=== PATIENT | male | born 1955 | race Caucasian/White ===

== ENCOUNTER → 2018-06-11 09:55 | Outpatient (CLI) | payer BC, SELFPAY ==
[2018-06-11 12:04] LABS: Cholesterol 213 mg/dL (50-200); HDL Cholesterol 48 mg/dL (40-60); LDL CHOLESTEROL 94 mg/dL (<100); Triglyceride 249 mg/dL (30-150)
== END ==
PROVIDERS: PCP Internal Medicine; Visit Provider Internal Medicine
DX: E78.5 Hyperlipidemia, unspecified (principal)
CPT/HCPCS: 36415; 80061; 83721

== ENCOUNTER 2018-10-04 08:46 | Emergency (ER) | payer BC, SELFPAY ==
--- NOTE | 2018-10-04 08:48 | W.ED.GENAD ---
Discharge Plan Disposition Patient Disposition: HOME Condition: Stable Discharge Details Chief Complaint: Laceration Clinical Impression: Laceration, Open fracture of tuft of distal phalanx of finger Primary Care Provider: Pepper Jalloh ED Provider: Khadra Juarez Home Meds and New Rx's Prescriptions: No Action omega-3 fatty acids-fish oil [Fish Oil] 1 EACH capsule 1 ea PO BID RF: 0 glucosamine sulfate 2KCl 1,000 MG capsule 1,000 mg PO BID RF: 0 gemfibrozil [Lopid] 600 MG tablet 600 mg PO BID Qty: 180 RF: 4 albuterol sulfate [ProAir HFA] 8.5 GM HFA aerosol inhaler 2 puff Inhalation QID Qty: 1 RF: 1 fluticasone [Flovent HFA] 12 GM HFA aerosol inhaler 220 mcg Inhalation DAILY Qty: 3 RF: 2 cholecalciferol (vitamin D3) [Vitamin D3] 2,000 UNIT capsule 2,000 unit PO DAILY RF: 0 ibuprofen 600 MG tablet 600 mg PO Q6H Qty: 40 RF: 0 Discharge Instructions Instructions: Laceration (ED), Finger Fracture (ED) Additional Instructions: Please return immediately to the emergency department if you develop any new or worsening symptoms or if you become otherwise concerned. It is extremely important that you make an appointment to be seen by an orthopedic surgeon next week as we discussed for follow-up. Referrals: Gilberto Lay MD [ [facility] STAFF PHYSICIAN] - Pepper Jalloh MD [Primary Care Provider] - Discharge Data Discharge Date/Time-TO BE ENTERED AT DEPARTURE: 10/04/18 10:37 Medical Decision Making Tarun Amado is a 64-year-old man with history of hypercholesterolemia presenting to the emergency department with laceration to the distal tip of right index finger from table saw accident 4 days ago. On exam patient is very well and nontoxic appearing. Laceration does involve the fingernail. No signs of infection, digit is neurovascular intact. There are no other apparent injuries. Exam/history is not consistent with flexor tenosynovitis, sepsis, tendon injury, significant nerve injury. Concern for possible fracture. Plan for x-rays, irrigation with digital block, update tetanus. Wound irrigated copiously under pressure. Small amount of devascularized tissue debrided. Nails intact to cuticle, will leave in place at this time. Wound is not amenable to repair at this point. X-rays show tuft fracture. I discussed the patient with Dr. Leach orthopedic surgery, who recommended no antibiotics at this time given time elapsed from injury, Xeroform gauze dressing, orthopedics will see patient next week in follow-up. Lengthy discussion with patient regarding return to emergency department precautions and importance of outpatient follow-up with orthopedics next week and also with PCP. Patient is amenable to the plan. Medical Records Medical records reviewed: Yes I reviewed the patient's medical records. Imaging Data Radiologic Study: Attestation: I personally reviewed and interpreted this imaging study as follows: Radiologist's impression: Right index finger x-ray: Comminuted distal phalanx fracture of the right index finger HPI General Mode of arrival: ambulatory. Date/Time Provider Initiated Documentation: 10/04/18 08:48. Limitations to Documentation: no limitations. Information obtained by: patient, RN notes reviewed and old records reviewed. HPI Narrative: Tarun Amado is a 63 y/o man with history of hypercholesterolemia presenting to the emergency department laceration. Patient reports that 4 days ago he was using a table saw when he cut the distal end of his right index finger. Patient reports that his 's mother 5 days ago, and he did not want to cause her stress with his injury and so did not present to the emergency department. Patient reports that he came to the emergency department today because his family urged him to do so. He reports that he has been having continued unchanged pain since the incident to the tip of his right index finger the area of the injury. He has no other pain. There was no other injury. He has full range of motion of the finger. He reports sensation is normal other than pain. No recent illnesses. Has been eating and drinking normally. No skin rash. Related Data Home Medications Medication Instructions Recorded Confirmed omega-3 fatty acids-fish oil [Fish 1 ea PO BID cap 04/17/13 10/04/18 Oil 1,000 Mg Softgel] glucosamine sulfate 2KCl 1,000 mg PO BID 07/03/14 10/04/18 gemfibrozil [Lopid] 600 mg PO BID #180 tab-cap 08/23/17 10/04/18 albuterol sulfate [Proair Hfa] 2 puff INHALATION QID #1 inhaler 01/24/18 10/04/18 fluticasone [Flovent 220mcg] 220 mcg INHALATION DAILY #3 inhaler 01/24/18 10/04/18 cholecalciferol (vitamin D3) 2,000 unit PO DAILY 01/29/18 10/04/18 [Vitamin D3] ibuprofen 600 mg PO Q6H #40 tab 06/22/18 10/04/18 Previous Rx's Medication Instructions Recorded gemfibrozil [Lopid] 600 mg PO BID #180 tab-cap 08/23/17 albuterol sulfate [Proair Hfa] 2 puff INHALATION QID #1 inhaler 01/24/18 fluticasone [Flovent 220mcg] 220 mcg INHALATION DAILY #3 inhaler 01/24/18 ibuprofen 600 mg PO Q6H #40 tab 06/22/18 Allergies Allergy/AdvReac Type Severity Reaction Status Date / Time ether Allergy Mild Unverified 10/04/18 08:53 Review of Systems Review of Systems Constitutional: denies fevers Eyes: denies eye pain ENT: denies facial pain, dental pain, sore throat Cardiovascular: denies chest pain Respiratory: denies SOB, cough GI: denies abdominal pain, vomiting : denies flank pain MSK: denies back pain, neck pain, arthralgias Skin: denies rash, reports wound Neuro: denies headaches, n/t, weakness PFSH Hyperlipidemia Family History Mother Diabetes Father Heart disease Sister No problems noted. Brother Heart disease Grandfather No problems noted. Grandfather Heart disease Grandmother No problems noted. Grandmother No problems noted. Brother Diabetes Heart disease Stroke Son No problems noted. Daughter No problems noted. Appendectomy Fracture, Open Treatment Family History Mother Diabetes Father Heart disease Sister No problems noted. Brother Heart disease Grandfather No problems noted. Grandfather Heart disease Grandmother No problems noted. Grandmother No problems noted. Brother Diabetes Heart disease Stroke Son No problems noted. Daughter No problems noted. Medical History Hyperlipidemia Social History Smoking/Tobacco Use Status: Never substance use type: does not use Surgical History Appendectomy Fracture, Open Treatment Social History Smoking/Tobacco Use Status: Never substance use type: does not use Exam Narrative Exam Narrative: Constitutional: well and [id number], pleasant, conversing normally HENT: head atraumatic, normocephalic normal inspection, mucous membranes moist Eyes: conjunctiva normal, sclera normal, pupils 3mm b/l Neck: no stridor, normal ROM, trachea midline Resp: normal work of breathing Cardio: normal rate, normal rhythm Skin: warm, dry, normal color, no rash Neuro: alert, not altered, grossly non-focal, normal tone Ext: no edema. Right index finger with laceration to distal medial aspect involving fingernail, no edema of the finger, no skin erythema, full range of motion of the digit, sensation intact. Right hand otherwise atraumatic with normal exam. Radial pulses intact and symmetric. Psych: normal mood, normal affect, normal behavior Procedures Nerve Block Nerve Block 1: Local Anesthetic: Lidocaine 1% Amount of anesthesia used (mL): 4 Side: right Nerve Blocks: digital Procedure Successful: Yes Patient Tolerated Procedure: well and no complications Complications: none
[2018-10-04 08:49] VITALS: BP 170/107; PULSE 100; RESP 16; TEMP 36.6; O2SAT 98
--- NOTE | 2018-10-04 08:56 | DI.RAD_ITS ---
SYMPTOM/DIAGNOSIS: DISTAL LACERATION RIGHT INDEX FINGER: There is soft tissue irregularity at the distal aspect of the finger. There is a comminuted tuft fracture with multiple small fragments. Underlying moderate degenerative changes are seen of the interphalangeal joints. IMPRESSION: Comminuted tuft fracture.
[2018-10-04] MEDS: Cephalexin 500 MG CAP PO (09:50)
[2018-10-04] MEDS: Lidocaine 1% Multi-Dose 50 ML VIAL (09:52)
[2018-10-04 10:34] VITALS: PULSE 72; RESP 16; TEMP 37
== END 2018-10-04 10:37 | disposition home or self-care (01) ==
PROVIDERS: Emergency Provider Student in an Organized Health Care Education/Training Program; PCP Internal Medicine
DX: S62.660B Nondisplaced fracture of distal phalanx of right index finger, initial encounter for open fracture (principal); W31.2XXA Contact with powered woodworking and forming machines, initial encounter
CPT/HCPCS: 90471; 99284; 73140

== ENCOUNTER 2019-06-17 07:18 | Outpatient (CLI) | payer BC, SELFPAY ==
[2019-06-17 12:15] LABS: Calculated LDL 99 mg/dL; Cholesterol 172 mg/dL (50-200); HDL Cholesterol 48 mg/dL (40-60); Triglyceride 128 mg/dL (30-150)
[2019-06-18 09:45] LABS: PSA, Screening 1.3 ng/ml (0-4.5)
== END 2019-06-17 07:38 ==
PROVIDERS: PCP Internal Medicine; Visit Provider Internal Medicine
DX: E78.5 Hyperlipidemia, unspecified (principal); R35.1 Nocturia; Z12.5 Encounter for screening for malignant neoplasm of prostate
CPT/HCPCS: 36415; 80061; 83721; 84153

== ENCOUNTER 2020-05-27 13:17 | Outpatient (REF) | payer BC, SELFPAY ==
[2020-05-27 14:02] LABS: Abs Immature Grans 0.04 10^3/uL (0.0-0.06); Absolute Basophil Count 0.06 10^3/uL (0.0-0.2); Absolute Eosinophil Count 0.17 10^3/uL (0.0-0.7); Absolute Lymphocyte Count 1.97 10^3/uL (1.2-3.4); Absolute Monocyte Count 0.33 10^3/uL (0.1-0.8); Absolute Neutrophil Count 4.14 10^3/uL (1.2-6.7); Basophils % 0.9; Eosinophils % 2.5; HCT 45.4 % (40.0-50.0); HGB 15.3 g/dL (13.5-17.5); Immature Grans % 0.6; Lymphocytes % 29.4; MCH 30.2 pg (27.0-33.0); MCHC 33.7 % (32.0-36.0); MCV 89.5 fL (80-95); MPV 11.1 fL (8.0-11.0); Monocytes % 4.9; Neutrophils % 61.7; Platelet Count 237 10^3/uL (130-400); RBC 5.07 10^6/uL (4.36-5.78); RDW-SD 42.5 fL; WBC 6.71 10^3/uL (4.4-10.8)
[2020-05-27 14:04] LABS: ALT 33 U/L (16-63); AST 19 U/L (15-37); Albumin 4.3 g/dL (3.4-5.0); Alkaline Phosphatase 75 U/L (46-116); Anion Gap 10.8 mmol/L (3-11); BUN 13 mg/dL (7-18); Bilirubin, Total 0.9 mg/dL (0.2-1.0); CO2 24.2 mmol/L (21.0-32.0); CREATININE 0.94 mg/dL (0.70-1.30); Calcium 9.1 mg/dL (8.5-10.1); Calculated LDL 126 mg/dL (<100); Chloride 105 mmol/L (98-107); Cholesterol 216 mg/dL (<200); Glucose 121 mg/dL (74-106); HDL Cholesterol 50 mg/dL (40-60); Potassium 4.2 mmol/L (3.5-5.1); Sodium 140 mmol/L (136-145); Total Protein 7.7 g/dL (6.4-8.2); Triglyceride 201 mg/dL (<150)
[2020-05-27 14:12] LABS: Uric Acid 2.8 mg/dL (3.5-7.2)
[2020-05-27 14:31] LABS: Bilirubin Negative (Negative); Blood Negative (Negative); Clarity Clear (Clear); Glucose Negative (Negative); Ketones Negative (Negative); Leukocyte Esterase Negative (Negative); Nitrite Negative (Negative); Specific Gravity >= 1.030 (1.005-1.025); Urobilinogen 0.2 EU/dL (Up TO 0.2); pH 6.5 (5-8)
== END 2020-05-27 13:37 ==
LOC: LBN 13:17
PROVIDERS: PCP Nurse Practitioner; Visit Provider Family Medicine
DX: E78.5 Hyperlipidemia, unspecified (principal); R10.30 Lower abdominal pain, unspecified; N20.0 Calculus of kidney
CPT/HCPCS: 80053; 80061; 81003; 84550; 85025

== ENCOUNTER 2020-09-07 09:23 | Outpatient (CLI) | payer BC, SELFPAY ==
--- NOTE | 2020-09-07 09:15 | DI.RAD_ITS ---
EXAM: XR FOOT RT COMPLETE CLINICAL HISTORY: R foot pain TECHNIQUE: COMPARISON: CR RIGHT FOOT LIMITED from 06/22/2018 FINDINGS: Three views were obtained. There is a fixation screw in the 5th metatarsal. Fixation distal tibia a nd distal fibula is also noted. There is question of mild loosening of the 5th metatarsal fixation s crew with lucent halo around its tip. There are mild degenerative changes of the joints of foot. IMPRESSION: Question loosening of 5th metatarsal fixation screw please correlate site of the patient's symptomato logy. RADIATION DOSE DELIVERED: Total DLP
== END 2020-09-07 09:43 ==
PROVIDERS: PCP Nurse Practitioner; Referring Provider Nurse Practitioner; Visit Provider Physician Assistant
DX: M79.671 Pain in right foot (principal)
CPT/HCPCS: 73630

== ENCOUNTER 2021-06-10 10:23 | Outpatient (CLI) | payer BC, SELFPAY ==
[2021-06-10 12:34] LABS: Calculated LDL 131 mg/dL (<100); Cholesterol 214 mg/dL (<200); HDL Cholesterol 53 mg/dL (40-60); Triglyceride 153 mg/dL (<150)
[2021-06-10 12:38] LABS: Hemoglobin A1C 6.1 % (<5.7)
== END 2021-06-10 10:24 | disposition home or self-care (01) ==
LOC: LOS 10:25
PROVIDERS: PCP Nurse Practitioner Family; Visit Provider Nurse Practitioner Family
DX: E78.5 Hyperlipidemia, unspecified (principal); Z13.1 Encounter for screening for diabetes mellitus
CPT/HCPCS: 36415; 80061; 83036

== ENCOUNTER 2021-09-24 00:36 | Outpatient (CLI) | payer MEDICARE, BC, SELFPAY ==
--- NOTE | 2021-09-24 07:00 | DI.CT_ITS ---
Exam(s) CT RENAL COLIC WO EXAM: CT RENAL COLIC WO CLINICAL HISTORY: Kidney stone on rt, n20.0. TECHNIQUE: Imaging Protocol: Axial computed tomography images with coronal and sagittal reformatted images were created and reviewed. CONTRAST MATERIAL: Noncontrast COMPARISON: CT RENAL COLIC WO CONTRAST from 05/08/2012 CT RENAL COLIC WO CONTRAST from 05/08/2012 FINDINGS: ABDOMEN: Lung Bases: Pleural plaques. Few calcifications. Liver: Normal attenuation. No measurable mass. Gallbladder and biliary tract: No radiodense calculus or dilation. Pancreas: Normal density, no calcifications or inflammatory process. Spleen: Normal. Kidneys: Normal size, contour and axis. Duplex collecting system right kidney. No radiodense stones or obstructive uropathy. No masses seen. Adrenal glands: No masses seen. Abdominal Aorta: Abdominal portion non-dilated. Mild atherosclerotic changes. PELVIS: Bladder: Symmetric distention, no gross wall thickening. Bowel: Sigmoid diverticulosis. No evidence of diverticulitis. No obstruction or bowel wall thickeni ng. Peritoneal cavity: No ascites, collection or mesenteric inflammatory response. Mildly enlarged prostate impressing on base of bladder. Bones: Stable mild L1 compression fracture. Degenerative disc changes at L5-S1. Soft tissues: Fatty containing left inguinal hernia. IMPRESSION: No evidence of urinary tract calculi or hydronephrosis. RADIATION DOSE DELIVERED: 789.55mGy.cm Total DLP DATA REPOSITORY: All CT scans at this facility are submitted to the National Radiology Data Registry (NRDR) Dose Index Registry (DIR) with the [employer] (A[employer]). RADIATION OPTIMIZATION: All CT scans at this facility use at least one of these dose optimization te chniques: automated exposure control; mA and/or kV adjustment per patient size (includes targeted exa ms where dose is matched to clinical indication); or iterative reconstruction.
== END 2021-09-24 00:56 ==
PROVIDERS: PCP Nurse Practitioner Family; Visit Provider Nurse Practitioner Family
DX: N20.0 Calculus of kidney (principal)
CPT/HCPCS: 74176

== ENCOUNTER 2021-09-27 13:00 | Outpatient (REF) | payer MEDICARE, BC, SELFPAY | END 2021-09-27 13:01 | disposition home or self-care (01) | LOC: LBN 13:00 | PROVIDERS: PCP Nurse Practitioner Family; Visit Provider Nurse Practitioner Family | DX: N20.0 Calculus of kidney (principal) | CPT/HCPCS: 87086 ==

== ENCOUNTER → 2021-09-30 09:48 | Outpatient (BNVA) | payer MEDICARE, BC, SELFPAY | PROVIDERS: PCP Nurse Practitioner Family; Referring Provider Nurse Practitioner Family; Visit Provider Urology | DX: N20.0 Calculus of kidney (principal); R31.29 Other microscopic hematuria | CPT/HCPCS: 81003; 99204; 99214 ==

== ENCOUNTER 2022-08-04 02:25 | Outpatient (CLI) | payer MEDICARE, BC, SELFPAY ==
[2022-08-04 13:32] LABS: Calculated LDL 136 mg/dL (<100); Cholesterol 208 mg/dL (<200); HDL Cholesterol 56 mg/dL (40-60); Triglyceride 82 mg/dL (<150)
[2022-08-04 13:35] LABS: Hemoglobin A1C 5.9 % (<5.7)
== END 2022-08-04 02:26 | disposition home or self-care (01) ==
LOC: LOS 02:26
PROVIDERS: PCP Nurse Practitioner Family; Visit Provider Nurse Practitioner Family
DX: E78.5 Hyperlipidemia, unspecified (principal); R73.03 Prediabetes
CPT/HCPCS: 36415; 80061; 83036

== ENCOUNTER 2023-06-05 13:03 | Outpatient (REF) | payer MEDICARE, BC, SELFPAY ==
--- NOTE | 2023-06-05 12:15 | SKI_PTH ---
PATIENT: Tarun Amado LOC: [facility] U#:[id number] AGE/SX: 67/M ROOM: RE06/05/[address]: Talib Hameed MD : 1955 BED: DIS: 06/05/2023 SPEC #: [id number] RECD: 06/05/23 18:12 STATUS: RACHID REQ #: [id number] RUSLAN: 06/05/23 12:[address]: Talib Hameed DEPT: Surgical Specimen RECD BY: Grecia Otero ENTERED: 06/05/23 18:13 SP TYPE: HIEN NUÑEZ DR: Jerod Cagle, DARRYL Tissues: 1 - SKIN BIOPSY(SHAVE/PUNCH) Procedures: SKIN LEVEL 4 Comments: [id number]
== END 2023-06-05 13:04 | disposition home or self-care (01) ==
LOC: LBN 13:03
PROVIDERS: PCP Nurse Practitioner Family; Visit Provider Otolaryngology
DX: C44.212 Basal cell carcinoma of skin of right ear and external auricular canal (principal)
CPT/HCPCS: 88305

== ENCOUNTER 2023-06-28 10:24 | Outpatient (CLI) | payer MEDICARE, BC, SELFPAY ==
[2023-06-28 08:19] LABS: CREATININE 0.9 mg/dL (0.70-1.30); Calculated LDL 95 mg/dL (<100); Cholesterol 167 mg/dL (<200); Estimated GFR 94.19 (mL/min/1.73m2); HDL Cholesterol 55 mg/dL (40-60); Potassium 3.5 mmol/L (3.5-5.1); Triglyceride 85 mg/dL (<150)
== END 2023-06-28 10:25 | disposition home or self-care (01) ==
LOC: LBO 10:24
PROVIDERS: PCP Nurse Practitioner Family; Visit Provider Nurse Practitioner Family
DX: I10 Essential (primary) hypertension (principal); E78.5 Hyperlipidemia, unspecified
CPT/HCPCS: 36415; 80061; 82565; 84132

== ENCOUNTER 2024-07-29 13:00 | Outpatient (CLI) | payer MEDICARE, BC, SELFPAY ==
[2024-07-29 08:52] LABS: Calculated LDL 93 mg/dL (<100); Cholesterol 184 mg/dL (<200); Estimated GFR 82.49 (mL/min/1.73m2); HDL Cholesterol 60 mg/dL (40-60); Potassium 4.3 mmol/L (3.5-5.1); Triglyceride 155 mg/dL (<150)
[2024-07-29 18:28] LABS: PSA, Screening 1.6 ng/mL (<=4.5)
== END 2024-07-29 13:01 | disposition home or self-care (01) ==
LOC: LBO 13:01
PROVIDERS: PCP Nurse Practitioner Family; Visit Provider Nurse Practitioner Family
DX: I10 Essential (primary) hypertension (principal); E78.2 Mixed hyperlipidemia; Z13.220 Encounter for screening for lipoid disorders; Z12.5 Encounter for screening for malignant neoplasm of prostate
CPT/HCPCS: 36415; 80061; 84153; 82565; 84132

== ENCOUNTER 2025-08-05 08:06 | Outpatient (CLI) | payer MEDICARE, BC, SELFPAY ==
[2025-08-05 08:14] LABS: Anion Gap 10.6 mmol/L (3-11); BUN 16 mg/dL (7-18); CO2 27.4 mmol/L (21.0-32.0); Calcium 8.9 mg/dL (8.5-10.1); Calculated LDL 112 mg/dL (<100); Chloride 102 mmol/L (98-107); Cholesterol 188 mg/dL (<200); Estimated GFR 81.98 (mL/min/1.73m2); Glucose 139 mg/dL (74-106); HDL Cholesterol 55 mg/dL (>or=40); Potassium 4.3 mmol/L (3.5-5.1); Sodium 140 mmol/L (136-145); Triglyceride 108 mg/dL (<150)
== END 2025-08-05 08:07 | disposition home or self-care (01) ==
LOC: LBO 08:08
PROVIDERS: PCP Nurse Practitioner Family; Visit Provider Family Medicine
DX: Z13.6 Encounter for screening for cardiovascular disorders (principal); Z13.1 Encounter for screening for diabetes mellitus; I10 Essential (primary) hypertension
CPT/HCPCS: 36415; 80048; 80061

== ENCOUNTER 2025-10-28 07:40 | Outpatient (REF) | payer MEDICARE, BC, SELFPAY ==
--- NOTE | 2025-10-28 07:20 | SKI_PTH ---
PATIENT: Tarun Amado LOC: [facility] U#:[id number] AGE/SX: 70/M ROOM: RE10/28/[address]: Talib Hameed MD : 1955 BED: DIS: 10/28/2025 SPEC #: [id number] RECD: 10/28/25 18:26 STATUS: RACHID REQ #: [id number] RUSLAN: 10/28/25 07:[address]: Talib Hameed DEPT: Surgical Specimen RECD BY: Grecia Otero ENTERED: 10/28/25 18:26 SP TYPE: HIEN NUÑEZ DR: Jerod Cagle, DARRYL Tissues: 1 - SKIN BIOPSY(SHAVE/PUNCH) Procedures: SKIN LEVEL 4 Comments: [id number]
== END 2025-10-28 07:41 | disposition home or self-care (01) ==
LOC: LBN 07:40
PROVIDERS: PCP Nurse Practitioner Family; Visit Provider Otolaryngology
DX: L98.9 Disorder of the skin and subcutaneous tissue, unspecified (principal)
CPT/HCPCS: 88305